=== PATIENT | female | born 1975 | race Asian ===

== ENCOUNTER 2022-02-16 11:01 | Emergency (ER) | payer MEDICAID ==
[~2022-02-16] VITALS: Ht 165.1 cm; Wt 83.9 kg
[2022-02-16 11:01] VITALS: BP_SYST 153
--- NOTE | 2022-02-16 11:01 | NUR ---
BROUGHT IN BY [facility]. PLACED IN BED #1 AND TRIAGED. REPORT GIVEN TO DARIEN
--- NOTE | 2022-02-16 11:02 | NUR ---
PT PLACED IN BED W/ SEIZURE PADS ON BILATERAL BED RAILS.
--- NOTE | 2022-02-16 11:05 | NUR ---
MD DR ARNDT AT BEDSIDE
--- NOTE | 2022-02-16 11:05 | NUR ---
PT BIBA AWAKE AND ALERT, AOX4. NO SOB OR DISTRESS. PT APPEARS TO COME IN AND OUT OUT SHAKY SPELLS LIKE POSSIBLE SEIZURE. 98% O2SAT ON ROOM ARE. EMT STATES PT WAS WITHNESSED HAVE SEIZURE LIKE SYMPTOMS WHILE AT HER DR VISIT. NO KO. NO TRAUMA VISIBLE.
--- NOTE | 2022-02-16 11:10 | NUR ---
1 GM OF [facility] ADMINISTERED, PT IN BED WHILE RAIL PADDIND FOR SAFETY
[2022-02-16] MEDS ORDERED: LORazepam 2 MG/ML VIAL IVP ONE (11:15)
[2022-02-16] MEDS ORDERED: NS 500 ML IV ONE (11:15)
[2022-02-16 11:24] LABS: BASOPHILS # (AUTO) 0.1 K/uL (0.0-0.2); BASOPHILS % (AUTO) 0.8 % (0.0-2.0); EOSINOPHILS # (AUTO) 0.1 K/uL (0.0-0.4); HEMATOCRIT 39.2 % (36-48); HEMOGLOBIN 13.2 g/dL (12.0-16.0); LYMPHOCYTES # (AUTO) 2.1 K/uL (1.0-5.5); LYMPHOCYTES % (AUTO) 30.9 % (20.5-51.5); MEAN CORPUSCULAR HEMOGLOBIN 27 pg (27-31); MEAN CORPUSCULAR HGB CONC 34 % (32-36); MEAN CORPUSCULAR VOLUME 79 fL (79.0-98.0); MONOCYTES # (AUTO) 0.3 K/uL (0.0-1.0); MONOCYTES % (AUTO) 4.4 % (1.7-9.3); NEUTROPHILS # (AUTO) 4.2 K/uL (1.8-7.7); NEUTROPHILS % (AUTO) 61.9 % (40.0-70.0); PLATELET COUNT (AUTO) 157 K/uL (130-430); RED BLOOD CELL COUNT(AUTO) 4.94 MIL/uL (4.2-6.2); RED CELL DISTRIBUTION WIDTH 13.8 % (9.0-15.0); WHITE BLOOD COUNT (AUTO) 6.8 K/uL (4.8-10.8)
[2022-02-16 11:41] LABS: ANION GAP 5 (5-15); CALCIUM 9.2 mg/dL (8.4-11.0); CHLORIDE 99 mmol/L (98-107); CREATININE 0.67 mg/dL (0.55-1.30); GLUCOSE 285 mg/dL (70-99); POTASSIUM 4.5 mmol/L (3.5-5.1); UREA NITROGEN, BLOOD 10 mg/dL (8-21)
[2022-02-16 11:50] LABS: GFR AFRICAN AMERICAN 122 mL/min (>90)
[2022-02-16 12:03] LABS: ALANINE AMINOTRANSFERASE 45 U/L (12-78); ASPARTATE AMINOTRANSFERASE 24 U/L (10-37); TOTAL BILIRUBIN 0.4 mg/dL (0.0-1.0)
--- NOTE | 2022-02-16 12:05 | NUR ---
Report given to NICK Apodaca for continuity of care. Seizure pads placed on side rails. Vital signs taken. Patient moving around. . at bedside to see patient.
--- NOTE | 2022-02-16 12:13 | NUR ---
Pt off the unit for CT
[2022-02-16 12:17] LABS: BILIRUBIN,URINE NEGATIVE (NEGATIVE); BLOOD, URINE NEGATIVE (NEGATIVE); CLARITY/URINE CLEAR (CLEAR); COLOR,URINE YELLOW (YELLOW); GLUCOSE,URINE 3+ (NEGATIVE); KETONES,URINE NEGATIVE (NEGATIVE); LEUKOCYTE ESTERASE ,URINE NEGATIVE (NEGATIVE); NITRITE, URINE NEGATIVE (NEGATIVE); PH,URINE 5.5 (5.0-8.0); PROTEIN URINE NEGATIVE (NEGATIVE); UROBILINOGEN,URINE 0.2 (0.2-1.0)
[2022-02-16 12:24] LABS: BACTERIA,URINE FEW /HPF (None Seen); WBC,URINE NONE SEEN /HPF (0-3)
--- NOTE | 2022-02-16 15:12 | NUR ---
Dr. Castillo at bedside with patient. Patient is discharged from ED by Primary nurse. Patient informed that she should have someone pick her up. Patient ambulates with cane and has steady gait. Patient insists on driving home after being educated. MD notified.
--- NOTE | 2022-02-16 15:42 | NUR ---
PT WAS WHEELCHAIRED TO PERSONAL VEHICLE BY ME AFTER INSTRUCTED BY MD NOT TO DRIVE AFTER HELPING PATIENT TO CAR SHE PROCEDED TO PUT PERSONAL BELONGINGS IN VEHILCLE AND LOCKED IT AND WALKED INTO THE OFFICE BULDING TO MD WING.
[2022-02-16 15:55] VITALS: BP_SYST 125
--- NOTE | 2022-02-16 15:57 | NUR ---
Patient given written and verbal discharge instructions and verbalizes understanding. ER MD DR RETANA discussed with patient the results and treatment provided. Patient in stable condition. ID arm band removed. IV catheter removed intact and dressing applied, no active bleeding. Patient educated on pain management and to follow up with PMD. Pain Scale 0/10. Opportunity for questions provided and answered. Medication side effect fact sheet provided.
== END 2022-02-16 15:12 | disposition home or self-care (01) ==
LOC: SED 11:01
DX: R25.1 Tremor, unspecified (principal); R51.9 Headache, unspecified; M79.622 Pain in left upper arm; E11.9 Type 2 diabetes mellitus without complications; I10 Essential (primary) hypertension; E78.5 Hyperlipidemia, unspecified; Z88.6 Allergy status to analgesic agent; Z79.899 Other long term (current) drug therapy
CPT/HCPCS: 99284; 96374; 70450; 96361; 80053; 81000; 85025; 84484; 36415; 76376; 81025; J2060; J7040; J7030